=== PATIENT | male | born 1985 | race Caucasian/White ===

== ENCOUNTER 2017-06-06 19:31 | Emergency (ER) | payer SELFPAY ==
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
[2017-06-06 19:51] LABS: Hematocrit 44.5 % (42.0-52.0); Hemoglobin 15.5 gm/dL (13.5-18.0); Mean Cell Volume 82.6 fl (78-100); Mean Corpuscular Hemoglobin 28.8 pg (27-31); Mean Corpuscular Hgb Conc 34.8 g/dl (32-36); Mean Platelet Volume 9.8 fl (6.0-9.5); Neutrophil # 10.6 K/mm3 (1.3-6.0); Neutrophil % 76.4 % (42-75.0); Platelet Count 260 K/mm3 (150-450); Red Blood Count 5.39 M/mm3 (4.7-6.0); Red Cell Distribution Width 12.8 % (11.5-14.0); White Blood Count 13.9 K/mm3 (4.0-10.5)
[2017-06-06 20:02] LABS: Albumin * 4.4 gm/dl (3.4-5.0); Anion Gap 14.7 mmol/L (6.8-13.8); BUN/Creatinine Ratio 10.4 (9.0-21.6); Bilirubin, Total 0.4 mg/dL (0.0-1.1); Ca. Corrected For Albumin 8.9 mg/dL (8.4-10.2); Calcium * 9.5 mg/dL (7.9-10.9); Carbon Dioxide 25.9 mmol/L (24-32.6); Potassium 3.6 mmol/L (3.4-4.6); Total Protein 8.5 gm/dL (6.2-8.2)
[2017-06-06] MEDS ORDERED: KETOROLAC TROMETHAMINE 30 MG/ML VIAL IV ONE (20:57)
[2017-06-06] MEDS ORDERED: KETOROLAC TROMETHAMINE 30 MG/ML VIAL ONE (20:59)
[2017-06-06 21:12] VITALS: BP 132/74
== END 2017-06-06 21:10 | disposition home or self-care (01) ==
LOC: ER 19:31
DX: S30.811A Abrasion of abdominal wall, initial encounter (principal); S00.81XA Abrasion of other part of head, initial encounter; V59.9XXA Occupant (driver) (passenger) of pick-up truck or van injured in unspecified traffic accident, initial encounter; Y93.89 Activity, other specified; Y92.411 Interstate highway as the place of occurrence of the external cause